=== PATIENT | male | born 1930 | race Caucasian/White ===

== ENCOUNTER 2017-08-19 09:02 | Emergency (ER) | payer MEDICARE, BC ==
[2015-11-25 01:43] VITALS: BMI 27.1
[~2017-08-19 09:02] MED LIST: ASPIRIN81 MG PO; AUGMENTIN 875-11 TAB PO; COLACE100 MG PO; COMBIVENT RESPIM4 GM INH; CORDARONE200 MG PO; COREG12.5 MG PO; DEMADEX10 MG PO; DEMADEX20 MG PO; IPRAT-ALBUT 0.5-3 ML UPD; K-TAB10 MEQ PO; LASIX40 MG PO; LEVAQUIN250 MG PO; MULTIPLE VITAMI1 TA1 PO; SINGULAIR10 MG PO; SYNTHROID150 MCG PO; XARELTO15 MG PO; ZOCOR20 MG PO; ZOLOFT50 MG PO; ZYLOPRIM100 MG PO
[2017-08-19 09:45] LABS: BASOPHILS 0.4 % (0-2); EOSINOPHILS 2.9 % (0-7); HEMATOCRIT 38.7 % (42.0-54.0); HEMOGLOBIN 13.1 g/dL (13.5-17.5); IMMATURE GRANULOCYTES 0.6 % (0-5); LYMPHOCYTES 21.2 % (15-50); MCH 32.3 pg (26.0-34.0); MCHC 33.9 g/dL (31.0-37.0); MCV 95.6 fL (80.0-100.0); MEAN PLATELET VOLUME 10.6 fL (7.4-10.4); MONOCYTES 11.7 % (2-11); NEUTROPHILS 63.2 % (40-80); RBC 4.05 10x6/uL (4.20-6.10); RDW 14.5 % (11.5-14.5); WBC 6.8 10x3/uL (4.8-10.8)
[2017-08-19 09:46] LABS: PLATELET COUNT 176 10x3/uL (130-400)
[2017-08-19 09:54] LABS: ALBUMIN 3.1 g/dL (3.4-5.0); ALKALINE PHOSPHATASE 86 U/L (46-116); ALT (SGPT) 33 U/L (10-68); BILIRUBIN - TOTAL 0.58 mg/dL (0.2-1.3); CALC OSMOLALITY 287 mosm/kg (275-300); CHLORIDE - SERUM 102 mmol/L (98-107); CREATININE - SERUM 1.9 mg/dL (0.6-1.3); POTASSIUM - SERUM 3.5 mmol/L (3.5-5.1); PROTEIN - SERUM 8.1 g/dL (6.4-8.2); SODIUM 138 mmol/L (136-145); UREA NITROGEN 47 mg/dL (7-18); eGFR NON AFRICAN AMERICAN 36 mL/min (90-120)
[2017-08-19 09:55] LABS: GLUCOSE 98 mg/dL (74-106)
[2017-08-19 10:10] LABS: CKMB 1.4 U/L (0.0-3.6); CREATINE KINASE 139 UL (21-232); MAGNESIUM - SERUM 2.1 mg/dL (1.8-2.4)
[2017-08-19 10:11] LABS: TROPONIN-I 0.137 ng/mL (0.000-0.060)
== END 2017-08-19 14:44 | disposition critical access hospital (66) ==
LOC: D.ER 09:02
PROVIDERS: Family Medicine
DX: I49.9 Cardiac arrhythmia, unspecified (principal); J44.9 Chronic obstructive pulmonary disease, unspecified; I49.3 Ventricular premature depolarization

== ENCOUNTER → 2018-03-05 13:37 | Outpatient (CLI) | payer MEDICARE, BC ==
[2015-11-25 01:43] VITALS: BMI 27.1
== END | disposition home or self-care (01) ==
LOC: D.RT 02-23 09:00 → D.RAD 02-23 10:00 → D.RT 13:37
DX: Z51.81 Encounter for therapeutic drug level monitoring (principal); Z79.899 Other long term (current) drug therapy